=== PATIENT | male | born 1930 | race Caucasian/White ===

== ENCOUNTER 2016-12-22 13:29 | Emergency (ER) | payer MEDICARE, BC ==
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
[2016-12-22 14:36] VITALS: BP 118/64
== END 2016-12-22 14:41 | disposition home or self-care (01) ==
LOC: UCCORT 13:29
DX: S01.81XA Laceration without foreign body of other part of head, initial encounter (principal); W22.8XXA Striking against or struck by other objects, initial encounter; Y92.9 Unspecified place or not applicable; Z88.2 Allergy status to sulfonamides; I50.9 Heart failure, unspecified
CPT/HCPCS: 99212; G0463